=== PATIENT | male | born 1945 | race Caucasian/White ===

== ENCOUNTER → 2018-03-19 | Outpatient (CLI) | payer MEDICARE, BC, OTHER | LOC: M PLARAD 13:38 | DX: M51.26 Other intervertebral disc displacement, lumbar region (principal); M48.061 Spinal stenosis, lumbar region without neurogenic claudication | CPT/HCPCS: 72148 ==

== ENCOUNTER → 2022-10-09 | Outpatient (REF) | LOC: M PLAIMG 10:45 | PROVIDERS: ATTEND Internal Medicine | DX: R06.02 Shortness of breath (principal) ==

== ENCOUNTER → 2022-11-12 | Outpatient (CLI) | payer MEDICARE, BC, OTHER | LOC: M RAD 10:26 | PROVIDERS: ATTEND Surgery Vascular Surgery | DX: I65.23 Occlusion and stenosis of bilateral carotid arteries (principal); I70.203 Unspecified atherosclerosis of native arteries of extremities, bilateral legs; I70.8 Atherosclerosis of other arteries; R09.89 Other specified symptoms and signs involving the circulatory and respiratory systems ==

== ENCOUNTER 2023-01-11 00:56 | Emergency (ER) | payer MEDICARE, BC, OTHER ==
[~2023-01-11] VITALS: Ht 175.3 cm; Wt 80.0 kg
[2023-01-11 00:56] VITALS: BP 155/66; TEMP 97.8; O2SAT 100
[2023-01-11 02:33] LABS: BASO # 0.1 10^3/uL (0.0-0.2); BASO % 1.2 % (0.0-1.0); EOS # 0.6 10^3/uL (0.0-0.5); EOS % 8.2 % (0.0-3.0); HEMATOCRIT 33.2 % (42.0-52.0); HEMOGLOBIN 10.8 g/dl (13.5-17.5); LYMPH # 1.8 10^3/uL (1.5-5.0); LYMPH % 24.8 % (24.0-44.0); MEAN CORPUSCULAR HEMOGLOBIN 29.7 pg (27.0-33.0); MEAN CORPUSCULAR HGB CONC 32.5 g/dl (32.0-36.5); MEAN CORPUSCULAR VOLUME 91.2 fl (80.0-96.0); MONO # 0.6 10^3/uL (0.0-0.8); MONO % 7.5 % (2.0-8.0); NEUTROPHILS # 4.2 10^3/uL (1.5-8.5); NEUTROPHILS % 57.9 % (36.0-66.0); PLATELET COUNT, AUTOMATED 115 10^3/uL (150-450); RED BLOOD COUNT 3.64 10^6/uL (4.30-6.10); WHITE BLOOD COUNT 7.3 10^3/uL (4.0-10.0)
[2023-01-11 02:43] LABS: INR 0.98; PROTHROMBIN TIME 13.2 SECONDS (12.5-14.5)
[2023-01-11 02:44] LABS: CALCIUM LEVEL 8.7 MG/DL (8.3-10.6); CREATININE FOR GFR 2.16 MG/DL (0.70-1.30); GLOMERULAR FILTRATION RATE 31.8 (>42); PARTIAL THROMBOPLASTIN TIME 33.4 SECONDS (24.8-34.2); POTASSIUM SERUM 4.6 MMOL/L (3.5-5.1)
[2023-01-11] MEDS ORDERED: PANT40TA29 PO (17:02)
[2023-01-11] MEDS ORDERED: HYDR-3719 PO (17:02)
[2023-01-11] MEDS ORDERED: GABA-282 PO (17:02)
[2023-01-11] MEDS ORDERED: TAMS1CAP17 PO (17:02)
[2023-01-11] MEDS ORDERED: LEVOTAB10 PO (17:02)
[2023-01-11] MEDS ORDERED: FINA5TAB2 PO (17:02)
[2023-01-11] MEDS ORDERED: ROSU5TAB5 PO (17:02)
[2023-01-11] MEDS ORDERED: LOSA50TA5 PO (17:02)
[2023-01-11] MEDS ORDERED: ECOT81TA5 PO (17:02)
[2023-01-11] MEDS ORDERED: BUPR75TA5 PO (17:02)
[2023-01-11] MEDS ORDERED: ROPI5TAB23 PO (17:02)
[2023-01-11] MEDS ORDERED: FENT100D25 TD (17:02)
[2023-01-11] MEDS ORDERED: FARX1TAB5 PO (17:02)
[2023-01-11] MEDS ORDERED: RA N1TAB PO (17:06)
[2023-01-11] MEDS ORDERED: POTA99TA10 PO (17:06)
[2023-01-11] MEDS ORDERED: [UNRECOGNIZED DRUG - CODE] PO (17:08)
[2023-01-11] MEDS ORDERED: CLOP75TA2 PO (17:13)
== END 2023-01-11 05:48 | disposition left against medical advice (07) ==
LOC: M ED 00:56
DX: Z53.21 Procedure and treatment not carried out due to patient leaving prior to being seen by health care provider (principal)

== ENCOUNTER 2023-01-11 13:18 | Inpatient (IN) | payer MEDICARE, BC, OTHER ==
[~2023-01-11] VITALS: Ht 175.3 cm; Wt 77.7 kg
[2023-01-11 15:46] VITALS: BP 134/63; TEMP 97.3; O2SAT 100
[2023-01-11 15:58] LABS: BASO # 0.1 10^3/uL (0.0-0.2); BASO % 0.8 % (0.0-1.0); EOS # 0.5 10^3/uL (0.0-0.5); LYMPH # 1.3 10^3/uL (1.5-5.0); LYMPH % 17.1 % (24.0-44.0); MEAN CORPUSCULAR HEMOGLOBIN 29.9 pg (27.0-33.0); MEAN CORPUSCULAR HGB CONC 33.3 g/dl (32.0-36.5); MEAN CORPUSCULAR VOLUME 89.7 fl (80.0-96.0); MONO # 0.5 10^3/uL (0.0-0.8); NEUTROPHILS # 4.9 10^3/uL (1.5-8.5); NEUTROPHILS % 67.7 % (36.0-66.0); PLATELET COUNT, AUTOMATED 120 10^3/uL (150-450); RED BLOOD COUNT 3.68 10^6/uL (4.30-6.10); WHITE BLOOD COUNT 7.3 10^3/uL (4.0-10.0)
[2023-01-11] MEDS ORDERED: DEXTROSE 50% 50ML SYRINGE IV PRN (16:15)
[2023-01-11] MEDS ORDERED: MOM 30ML SUSPENSION UDC PO PRN (16:15)
[2023-01-11] MEDS ORDERED: MAALOX 30 ML SUSP *UDC PO PRN (16:15)
[2023-01-11] MEDS ORDERED: GLUCOSE 4GM CHEW TABLET PO PRN (16:15)
[2023-01-11] MEDS ORDERED: GLUCAGON INJ 1MG VIAL SC PRN (16:15)
[2023-01-11] MEDS ORDERED: HEPARIN SOD (PORCINE) 5000UNITS/ML 1ML VIAL/SYRINGE IV PRN (16:20)
[2023-01-11 16:29] LABS: ALBUMIN 4.2 G/DL (3.2-5.2); BILIRUBIN,TOTAL 0.5 MG/DL (0.3-1.2); CALCIUM LEVEL 9.1 MG/DL (8.3-10.6); CREATININE FOR GFR 1.9 MG/DL (0.70-1.30); GLOMERULAR FILTRATION RATE 36.9 (>42); POTASSIUM SERUM 4.4 MMOL/L (3.5-5.1); TOTAL PROTEIN 6.5 G/DL (5.7-8.2)
[2023-01-11] MEDS ORDERED: HEPARIN SOD (PORCINE) 5000UNITS/ML 1ML VIAL/SYRINGE IV ONE (17:00)
[2023-01-11] MEDS ORDERED: HYDR-3719 PO (17:02)
[2023-01-11] MEDS ORDERED: GABA-282 PO (17:02)
[2023-01-11] MEDS ORDERED: FARX1TAB5 PO (17:02)
[2023-01-11] MEDS ORDERED: ECOT81TA5 PO (17:02)
[2023-01-11] MEDS ORDERED: PANT40TA29 PO (17:02)
[2023-01-11] MEDS ORDERED: LEVOTAB10 PO (17:02)
[2023-01-11] MEDS ORDERED: ROSU5TAB5 PO (17:02)
[2023-01-11] MEDS ORDERED: LOSA50TA5 PO (17:02)
[2023-01-11] MEDS ORDERED: ROPI5TAB23 PO (17:02)
[2023-01-11] MEDS ORDERED: TAMS1CAP17 PO (17:02)
[2023-01-11] MEDS ORDERED: FINA5TAB2 PO (17:02)
[2023-01-11] MEDS ORDERED: BUPR75TA5 PO (17:02)
[2023-01-11] MEDS ORDERED: FENT100D25 TD (17:02)
[2023-01-11 17:06] LABS: PROCALCITONIN 0.04 ng/ml
[2023-01-11] MEDS ORDERED: RA N1TAB PO (17:06)
[2023-01-11] MEDS ORDERED: POTA99TA10 PO (17:06)
[2023-01-11] MEDS ORDERED: [UNRECOGNIZED DRUG - CODE] PO (17:08)
[2023-01-11] MEDS ORDERED: HOME MED LIST COMPLETE! XX SCH (17:10)
[2023-01-11] MEDS ORDERED: CLOP75TA2 PO (17:13)
[2023-01-11 17:17] LABS: HEMATOCRIT 31.9 % (42.0-52.0); HEMOGLOBIN 10.3 g/dl (13.5-17.5); MEAN CORPUSCULAR HEMOGLOBIN 29.3 pg (27.0-33.0); MEAN CORPUSCULAR HGB CONC 32.3 g/dl (32.0-36.5); MEAN CORPUSCULAR VOLUME 90.6 fl (80.0-96.0); PLATELET COUNT, AUTOMATED 103 10^3/uL (150-450); RED BLOOD COUNT 3.52 10^6/uL (4.30-6.10); WHITE BLOOD COUNT 6.1 10^3/uL (4.0-10.0)
[2023-01-11] MEDS: INSULIN LISPRO (NovoLOG) PER UNIT SC SCH ×2 (17:30→21:00)
[2023-01-11] MEDS: NS 1,000 ML IV SCH (17:34)
[2023-01-11] MEDS ORDERED: PILL CUTTER 1 EACH XX PRN ×2 (17:35→19:30)
[2023-01-11] MEDS: HEPARIN DRIP 25,000 UNITS in IV 1 EA IV SCH (17:36)
[2023-01-11] MEDS: ASPIRIN 81MG ENTERIC TABLET PO SCH (17:51)
[2023-01-11] MEDS: CLOPIDOGREL 75 MG TAB PO SCH (17:51)
[2023-01-11 20:24] VITALS: BP 162/70; TEMP 98.2; O2SAT 100
[2023-01-11] MEDS: rOPINIRole 1MG TAB PO SCH (21:12)
[2023-01-11] MEDS: TAMSULOSIN 0.4 MG CAP PO SCH (21:12)
[2023-01-11] MEDS: buPROPion 75 MG TAB PO SCH (21:12)
[2023-01-11] MEDS: GABAPENTIN 300 MG CAP PO SCH (21:12)
[2023-01-11] MEDS: DOCUSATE SODIUM 100MG CAPSULE PO SCH (21:12)
[2023-01-11] MEDS: MORPHINE 2 MG/ML 1ML VIAL IV PRN (21:58)
[2023-01-11 23:41] VITALS: BP 132/61; TEMP 98.1; O2SAT 100
[2023-01-12] MEDS ORDERED: UNRESOLVED CLARIFICATION ENTRY XX SCH (00:01)
[2023-01-12 00:40] LABS: INR 1.02; PROTHROMBIN TIME 13.6 SECONDS (12.5-14.5)
[2023-01-12 00:41] LABS: PARTIAL THROMBOPLASTIN TIME 81.2 SECONDS (24.8-34.2)
[2023-01-12 04:06] VITALS: BP 143/66; TEMP 97.8; O2SAT 99
[2023-01-12 06:08] LABS: BASO # 0.1 10^3/uL (0.0-0.2); BASO % 0.9 % (0.0-1.0); EOS # 0.5 10^3/uL (0.0-0.5); EOS % 8.3 % (0.0-3.0); HEMATOCRIT 33.3 % (42.0-52.0); HEMOGLOBIN 10.7 g/dl (13.5-17.5); LYMPH # 1.4 10^3/uL (1.5-5.0); LYMPH % 24.8 % (24.0-44.0); MEAN CORPUSCULAR HEMOGLOBIN 29.2 pg (27.0-33.0); MEAN CORPUSCULAR HGB CONC 32.1 g/dl (32.0-36.5); MONO # 0.4 10^3/uL (0.0-0.8); MONO % 6.6 % (2.0-8.0); NEUTROPHILS # 3.3 10^3/uL (1.5-8.5); NEUTROPHILS % 59.2 % (36.0-66.0); PLATELET COUNT, AUTOMATED 112 10^3/uL (150-450); RED BLOOD COUNT 3.66 10^6/uL (4.30-6.10); WHITE BLOOD COUNT 5.6 10^3/uL (4.0-10.0)
[2023-01-12 06:24] LABS: INR 1.05; PROTHROMBIN TIME 13.9 SECONDS (12.5-14.5)
[2023-01-12 06:26] LABS: PARTIAL THROMBOPLASTIN TIME 63.2 SECONDS (24.8-34.2)
[2023-01-12 06:59] LABS: CALCIUM LEVEL 9.1 MG/DL (8.3-10.6); CREATININE FOR GFR 1.57 MG/DL (0.70-1.30); MAGNESIUM LEVEL 2.2 MG/DL (1.8-2.4); POTASSIUM SERUM 4.2 MMOL/L (3.5-5.1)
[2023-01-12 07:42] VITALS: BP 146/70; TEMP 97.1; O2SAT 99
[2023-01-12] MEDS: NS 1,000 ML IV SCH (08:27)
[2023-01-12] MEDS: PANTOPRAZOLE 40MG TAB (PROTONIX) PO SCH (08:28)
[2023-01-12] MEDS: buPROPion 75 MG TAB PO SCH ×2 (08:28→20:55)
[2023-01-12] MEDS: FINASTERIDE 5MG TAB PO SCH (08:28)
[2023-01-12] MEDS: ROSUVASTATIN 10 MG TAB (CRESTOR) PO SCH (08:28)
[2023-01-12] MEDS: DOCUSATE SODIUM 100MG CAPSULE PO SCH ×2 (08:28→20:55)
[2023-01-12] MEDS: ASPIRIN 81MG ENTERIC TABLET PO SCH (08:28)
[2023-01-12] MEDS: GABAPENTIN 300 MG CAP PO SCH ×2 (08:28→20:55)
[2023-01-12] MEDS: INSULIN LISPRO (NovoLOG) PER UNIT SC SCH ×4 (08:28→20:55)
[2023-01-12] MEDS: CLOPIDOGREL 75 MG TAB PO SCH (08:28)
[2023-01-12 11:31] VITALS: BP 144/63; TEMP 96.4; O2SAT 99
[2023-01-12] MEDS: HEPARIN DRIP 25,000 UNITS in IV 1 EA IV SCH (13:07)
[2023-01-12 13:40] LABS: INR 1.04; PROTHROMBIN TIME 13.8 SECONDS (12.5-14.5)
[2023-01-12 13:41] LABS: PARTIAL THROMBOPLASTIN TIME 63.1 SECONDS (24.8-34.2)
[2023-01-12 16:01] VITALS: BP 155/70; TEMP 97.3; O2SAT 100
[2023-01-12] MEDS: MORPHINE 2 MG/ML 1ML VIAL IV PRN (18:22)
[2023-01-12 19:52] VITALS: BP 134/60; TEMP 97.1; O2SAT 98
[2023-01-12] MEDS ORDERED: predniSONE 50 MG TAB PO SCH (20:00)
[2023-01-12] MEDS: TAMSULOSIN 0.4 MG CAP PO SCH (20:54)
[2023-01-12] MEDS: rOPINIRole 1MG TAB PO SCH (20:54)
[2023-01-12] MEDS: predniSONE 50 MG TAB PO SCH (20:55)
[2023-01-12 23:44] VITALS: BP 162/66; TEMP 96.9; O2SAT 98
[2023-01-13] VITALS (9 sets, daily range): BP systolic 137–180; BP diastolic 62–80; TEMP 96.3–97.8; O2SAT 97–100
[2023-01-13] MEDS: NS 1,000 ML IV SCH ×2 (00:25→19:00)
[2023-01-13] MEDS: predniSONE 50 MG TAB PO SCH ×2 (01:56→07:42)
[2023-01-13 06:46] LABS: BASO % 0.5 % (0.0-1.0); EOS # 0.1 10^3/uL (0.0-0.5); EOS % 1.5 % (0.0-3.0); HEMATOCRIT 34.9 % (42.0-52.0); HEMOGLOBIN 11.1 g/dl (13.5-17.5); LYMPH # 0.5 10^3/uL (1.5-5.0); LYMPH % 11.8 % (24.0-44.0); MEAN CORPUSCULAR HEMOGLOBIN 29.4 pg (27.0-33.0); MEAN CORPUSCULAR HGB CONC 31.8 g/dl (32.0-36.5); MEAN CORPUSCULAR VOLUME 92.3 fl (80.0-96.0); NEUTROPHILS # 3.3 10^3/uL (1.5-8.5); NEUTROPHILS % 84.7 % (36.0-66.0); PLATELET COUNT, AUTOMATED 103 10^3/uL (150-450); RED BLOOD COUNT 3.78 10^6/uL (4.30-6.10); WHITE BLOOD COUNT 3.9 10^3/uL (4.0-10.0)
[2023-01-13] MEDS: INSULIN LISPRO (NovoLOG) PER UNIT SC SCH ×4 (07:30→20:20)
[2023-01-13] MEDS: PANTOPRAZOLE 40MG TAB (PROTONIX) PO SCH (07:42)
[2023-01-13] MEDS: CLOPIDOGREL 75 MG TAB PO SCH (07:42)
[2023-01-13] MEDS: ASPIRIN 81MG ENTERIC TABLET PO SCH (07:43)
[2023-01-13] MEDS: DOCUSATE SODIUM 100MG CAPSULE PO SCH ×2 (07:49→20:18)
[2023-01-13] MEDS ORDERED: diphenhydrAMINE 50MG CAP PO ONE (08:00)
[2023-01-13 08:10] LABS: CALCIUM LEVEL 9.6 MG/DL (8.3-10.6); CREATININE FOR GFR 1.49 MG/DL (0.70-1.30); GLOMERULAR FILTRATION RATE 48.8 (>42); MAGNESIUM LEVEL 1.8 MG/DL (1.8-2.4); POTASSIUM SERUM 5.3 MMOL/L (3.5-5.1)
[2023-01-13] MEDS ORDERED: hydrALAZINE 20MG/ML 1ML VIAL IV STA (08:20)
[2023-01-13] MEDS: buPROPion 75 MG TAB PO SCH ×2 (12:53→20:18)
[2023-01-13] MEDS: GABAPENTIN 300 MG CAP PO SCH ×2 (12:53→20:18)
[2023-01-13] MEDS: FINASTERIDE 5MG TAB PO SCH (12:53)
[2023-01-13] MEDS: ROSUVASTATIN 10 MG TAB (CRESTOR) PO SCH (12:53)
[2023-01-13] MEDS ORDERED: **hydrALAZINE HCL** 25 MG TAB PO PRN (13:20)
[2023-01-13] MEDS: fentaNYL 100 MCG/HR PATCH TD SCH (13:27)
[2023-01-13] MEDS: amLODIPine 5 MG TAB PO SCH (14:37)
[2023-01-13] MEDS ORDERED: PATIROMER SORBITEX CALCIUM 8.4 GM POWDER PACKET (VELTASSA) PO ONE (15:00)
[2023-01-13] MEDS: ACETAMINOPHEN TAB 650MG DOSE (2X325MG) PO PRN (18:55)
[2023-01-13] MEDS: TAMSULOSIN 0.4 MG CAP PO SCH (20:18)
[2023-01-13] MEDS: rOPINIRole 1MG TAB PO SCH (20:18)
[2023-01-13] MEDS: MORPHINE 2 MG/ML 1ML VIAL IV PRN (20:19)
[2023-01-13] MEDS: HEPARIN SOD (PORCINE) 5000UNITS/ML 1ML VIAL/SYRINGE SQ SCH (21:53)
[2023-01-14 00:11] VITALS: BP 163/72; TEMP 96.6; O2SAT 97
[2023-01-14 04:13] VITALS: BP 147/65; TEMP 97.6; O2SAT 100
[2023-01-14 05:58] LABS: BASO % 0.3 % (0.0-1.0); EOS # 0.2 10^3/uL (0.0-0.5); EOS % 1.6 % (0.0-3.0); HEMATOCRIT 33.3 % (42.0-52.0); HEMOGLOBIN 10.5 g/dl (13.5-17.5); LYMPH # 0.6 10^3/uL (1.5-5.0); LYMPH % 5.8 % (24.0-44.0); MEAN CORPUSCULAR HEMOGLOBIN 29.3 pg (27.0-33.0); MEAN CORPUSCULAR HGB CONC 31.5 g/dl (32.0-36.5); MONO # 0.2 10^3/uL (0.0-0.8); MONO % 2.2 % (2.0-8.0); NEUTROPHILS # 8.4 10^3/uL (1.5-8.5); NEUTROPHILS % 89.5 % (36.0-66.0); PLATELET COUNT, AUTOMATED 108 10^3/uL (150-450); RED BLOOD COUNT 3.58 10^6/uL (4.30-6.10); WHITE BLOOD COUNT 9.4 10^3/uL (4.0-10.0)
[2023-01-14 06:15] LABS: CALCIUM LEVEL 9.2 MG/DL (8.3-10.6); CREATININE FOR GFR 1.44 MG/DL (0.70-1.30); GLOMERULAR FILTRATION RATE 50.8 (>42); MAGNESIUM LEVEL 1.9 MG/DL (1.8-2.4); POTASSIUM SERUM 4.2 MMOL/L (3.5-5.1)
[2023-01-14] MEDS: MORPHINE 2 MG/ML 1ML VIAL IV PRN ×2 (06:18→21:26)
[2023-01-14] MEDS: HEPARIN SOD (PORCINE) 5000UNITS/ML 1ML VIAL/SYRINGE SQ SCH ×3 (06:18→21:26)
[2023-01-14] MEDS: INSULIN LISPRO (NovoLOG) PER UNIT SC SCH ×4 (07:30→21:00)
[2023-01-14 08:04] VITALS: BP 148/64; TEMP 97.4; O2SAT 100
[2023-01-14] MEDS: buPROPion 75 MG TAB PO SCH ×2 (09:33→21:34)
[2023-01-14] MEDS: PANTOPRAZOLE 40MG TAB (PROTONIX) PO SCH (09:33)
[2023-01-14] MEDS: GABAPENTIN 300 MG CAP PO SCH ×2 (09:34→21:25)
[2023-01-14] MEDS: DOCUSATE SODIUM 100MG CAPSULE PO SCH ×2 (09:34→21:27)
[2023-01-14] MEDS: FINASTERIDE 5MG TAB PO SCH (09:34)
[2023-01-14] MEDS: ASPIRIN 81MG ENTERIC TABLET PO SCH (09:35)
[2023-01-14] MEDS: ROSUVASTATIN 10 MG TAB (CRESTOR) PO SCH (09:35)
[2023-01-14] MEDS: CLOPIDOGREL 75 MG TAB PO SCH (09:35)
[2023-01-14] MEDS: amLODIPine 5 MG TAB PO SCH (09:35)
[2023-01-14 11:26] VITALS: BP 146/67; TEMP 97.4; O2SAT 100
[2023-01-14 15:52] VITALS: BP 138/62; TEMP 96.9; O2SAT 100
[2023-01-14 16:27] LABS: HEMATOCRIT 32.4 % (42.0-52.0); HEMOGLOBIN 10.5 g/dl (13.5-17.5); MEAN CORPUSCULAR HGB CONC 32.4 g/dl (32.0-36.5); MEAN CORPUSCULAR VOLUME 92.6 fl (80.0-96.0); WHITE BLOOD COUNT 7.7 10^3/uL (4.0-10.0)
[2023-01-14 18:47] LABS: PLATELET COUNT, AUTOMATED 98 10^3/uL (150-450)
[2023-01-14] MEDS: NORCO, ANEXSIA 5/325MG TABLET (HYDROcodone/ACETAMINOPHEN) PO PRN (18:57)
[2023-01-14 20:14] VITALS: BP 148/67; TEMP 97.5; O2SAT 98
[2023-01-14] MEDS: rOPINIRole 1MG TAB PO SCH (21:26)
[2023-01-14] MEDS: TAMSULOSIN 0.4 MG CAP PO SCH (21:26)
[2023-01-15] VITALS (7 sets, daily range): BP systolic 139–157; BP diastolic 63–70; TEMP 97–98.1; O2SAT 99–100
[2023-01-15 05:15] LABS: BASO % 0.5 % (0.0-1.0); EOS # 0.6 10^3/uL (0.0-0.5); HEMATOCRIT 32.3 % (42.0-52.0); HEMOGLOBIN 10.4 g/dl (13.5-17.5); LYMPH # 0.9 10^3/uL (1.5-5.0); LYMPH % 16.3 % (24.0-44.0); MEAN CORPUSCULAR HEMOGLOBIN 29.6 pg (27.0-33.0); MEAN CORPUSCULAR HGB CONC 32.2 g/dl (32.0-36.5); MONO # 0.3 10^3/uL (0.0-0.8); MONO % 4.6 % (2.0-8.0); NEUTROPHILS # 3.7 10^3/uL (1.5-8.5); NEUTROPHILS % 67.2 % (36.0-66.0); RED BLOOD COUNT 3.51 10^6/uL (4.30-6.10); WHITE BLOOD COUNT 5.5 10^3/uL (4.0-10.0)
[2023-01-15 05:24] LABS: CALCIUM LEVEL 9.1 MG/DL (8.3-10.6); CREATININE FOR GFR 1.57 MG/DL (0.70-1.30); MAGNESIUM LEVEL 1.9 MG/DL (1.8-2.4); POTASSIUM SERUM 4.8 MMOL/L (3.5-5.1)
[2023-01-15 05:57] LABS: PLATELET COUNT, AUTOMATED 88 10^3/uL (150-450)
[2023-01-15] MEDS: HEPARIN SOD (PORCINE) 5000UNITS/ML 1ML VIAL/SYRINGE SQ SCH (07:00)
[2023-01-15] MEDS: INSULIN LISPRO (NovoLOG) PER UNIT SC SCH ×4 (07:16→20:49)
[2023-01-15] MEDS: MORPHINE 2 MG/ML 1ML VIAL IV PRN ×4 (07:40→23:14)
[2023-01-15] MEDS: FENTANYL REMOVAL DOCUMENTATION MISC XX SCH (09:55)
[2023-01-15] MEDS: fentaNYL 100 MCG/HR PATCH TD SCH (09:58)
[2023-01-15] MEDS: NORCO, ANEXSIA 5/325MG TABLET (HYDROcodone/ACETAMINOPHEN) PO PRN (10:00)
[2023-01-15] MEDS: FINASTERIDE 5MG TAB PO SCH (10:01)
[2023-01-15] MEDS: ASPIRIN 81MG ENTERIC TABLET PO SCH (10:01)
[2023-01-15] MEDS: DOCUSATE SODIUM 100MG CAPSULE PO SCH ×2 (10:01→20:59)
[2023-01-15] MEDS: buPROPion 75 MG TAB PO SCH ×2 (10:01→20:59)
[2023-01-15] MEDS: ROSUVASTATIN 10 MG TAB (CRESTOR) PO SCH (10:01)
[2023-01-15] MEDS: CLOPIDOGREL 75 MG TAB PO SCH (10:02)
[2023-01-15] MEDS: GABAPENTIN 300 MG CAP PO SCH ×2 (10:02→20:58)
[2023-01-15] MEDS: PANTOPRAZOLE 40MG TAB (PROTONIX) PO SCH (10:02)
[2023-01-15] MEDS: NS 1,000 ML IV SCH (10:04)
[2023-01-15] MEDS: TAMSULOSIN 0.4 MG CAP PO SCH (20:58)
[2023-01-15] MEDS: rOPINIRole 1MG TAB PO SCH (20:58)
[2023-01-16] VITALS (26 sets, daily range): BP systolic 134–167; BP diastolic 47–67; TEMP 96.7–98.3; O2SAT 92–100
[2023-01-16] MEDS ORDERED: NS 1,000 ML IV SCH (01:00)
[2023-01-16 05:34] LABS: BASO % 0.7 % (0.0-1.0); EOS # 0.8 10^3/uL (0.0-0.5); EOS % 17.6 % (0.0-3.0); HEMATOCRIT 31.6 % (42.0-52.0); HEMOGLOBIN 10.3 g/dl (13.5-17.5); LYMPH # 0.8 10^3/uL (1.5-5.0); LYMPH % 17.6 % (24.0-44.0); MEAN CORPUSCULAR HGB CONC 32.6 g/dl (32.0-36.5); MEAN CORPUSCULAR VOLUME 92.1 fl (80.0-96.0); MONO # 0.3 10^3/uL (0.0-0.8); MONO % 6.6 % (2.0-8.0); NEUTROPHILS # 2.5 10^3/uL (1.5-8.5); NEUTROPHILS % 57.3 % (36.0-66.0); RED BLOOD COUNT 3.43 10^6/uL (4.30-6.10); WHITE BLOOD COUNT 4.4 10^3/uL (4.0-10.0)
[2023-01-16 05:36] LABS: PLATELET COUNT, AUTOMATED 93 10^3/uL (150-450)
[2023-01-16 05:58] LABS: CALCIUM LEVEL 8.9 MG/DL (8.3-10.6); CREATININE FOR GFR 1.38 MG/DL (0.70-1.30); GLOMERULAR FILTRATION RATE 53.3 (>42); POTASSIUM SERUM 4.4 MMOL/L (3.5-5.1)
[2023-01-16] MEDS: NS 1,000 ML IV SCH ×2 (06:58→23:25)
[2023-01-16] MEDS: INSULIN LISPRO (NovoLOG) PER UNIT SC SCH ×4 (07:30→22:00)
[2023-01-16] MEDS: ROSUVASTATIN 10 MG TAB (CRESTOR) PO SCH (08:43)
[2023-01-16] MEDS: buPROPion 75 MG TAB PO SCH ×2 (08:43→22:25)
[2023-01-16] MEDS: GABAPENTIN 300 MG CAP PO SCH ×2 (08:44→22:25)
[2023-01-16] MEDS: FINASTERIDE 5MG TAB PO SCH (08:44)
[2023-01-16] MEDS: DOCUSATE SODIUM 100MG CAPSULE PO SCH ×2 (08:44→21:00)
[2023-01-16] MEDS: PANTOPRAZOLE 40MG TAB (PROTONIX) PO SCH (08:44)
[2023-01-16 09:31] LABS: MAGNESIUM LEVEL 1.8 MG/DL (1.8-2.4)
[2023-01-16] MEDS: ASPIRIN 81MG ENTERIC TABLET PO SCH (10:14)
[2023-01-16] MEDS: CLOPIDOGREL 75 MG TAB PO SCH (10:14)
[2023-01-16] MEDS ORDERED: LIDOCAINE 2% 100MG/5ML SDV (FOR ANES.) As Ordered ONE (14:06)
[2023-01-16] MEDS ORDERED: propofoL 200 MG/20 ML VIAL As Ordered ONE (14:06)
[2023-01-16] MEDS ORDERED: ROCURONIUM BROMIDE 50MG/5ML VIAL As Ordered ONE (14:06)
[2023-01-16] MEDS ORDERED: ONDANSETRON 4MG 2ML VIAL As Ordered ONE (14:06)
[2023-01-16] MEDS ORDERED: ISOVUE-300 61% 100ML VIAL As Ordered ONE (14:53)
[2023-01-16] MEDS ORDERED: THROMBIN 5,000 UNITS VIAL As Ordered ONE (14:53)
[2023-01-16] MEDS ORDERED: MIDAZOLAM INJ 2MG/2ML VIAL As Ordered ONE (14:57)
[2023-01-16] MEDS ORDERED: fentaNYL 100 MCG/2 ML INJECTION As Ordered ONE (14:57)
[2023-01-16] MEDS ORDERED: ETOMIDATE INJ 20MG/10ML VIAL As Ordered ONE (14:57)
[2023-01-16] MEDS ORDERED: PHENYLEPHRINE 10MG/ML 1ML VIAL As Ordered ONE (14:59)
[2023-01-16] MEDS ORDERED: ceFAZolin SOD 2 GM in IV 1 EA IV ONE (15:15)
[2023-01-16] MEDS ORDERED: ceFAZolin 2 GM/D5W 50 ML IV BAG As Ordered ONE (15:19)
[2023-01-16] MEDS ORDERED: diphenhydrAMINE 50MG/ML VIAL As Ordered ONE (15:55)
[2023-01-16] MEDS ORDERED: FAMOTIDINE 20MG/2ML VIAL As Ordered ONE (16:23)
[2023-01-16] MEDS ORDERED: methylPREDNISolone 40MG 1ML VIAL As Ordered ONE (16:52)
[2023-01-16] MEDS ORDERED: ePHEDrine SULFATE 25 MG/5 ML(5MG/ML) SYRINGE As Ordered ONE ×2 (16:52→17:18)
[2023-01-16] MEDS ORDERED: HEPARIN SOD (PORCINE) 5000UNITS/ML 1ML VIAL/SYRINGE As Ordered ONE (16:53)
[2023-01-16] MEDS ORDERED: SUGAMMADEX SODIUM 500 MG/5 ML VIAL (BRIDION) As Ordered ONE (16:54)
[2023-01-16] MEDS ORDERED: PROTAMINE SULF 50MG 5ML VIAL As Ordered ONE (18:30)
[2023-01-16] MEDS ORDERED: METOCLOPRAMIDE INJ 10MG/2ML VIAL As Ordered ONE (18:36)
[2023-01-16] MEDS ORDERED: LIDOCAINE 1% SDV 30ML VIAL As Ordered ONE (18:36)
[2023-01-16] MEDS ORDERED: ACETAMINOPHEN 1000MG 100ML IV BAG As Ordered ONE (18:39)
[2023-01-16] MEDS ORDERED: ONDANSETRON 4MG 2ML VIAL IV PRN (18:55)
[2023-01-16] MEDS ORDERED: HYDROMORPHONE HCL 0.5 MG/ 0.5 ML SYRINGE IV PRN (18:55)
[2023-01-16] MEDS ORDERED: oxyCODONE 5MG TAB PO PRN (18:55)
[2023-01-16] MEDS ORDERED: LR 1,000 ML IV SCH (18:55)
[2023-01-16] MEDS ORDERED: fentaNYL 100 MCG/2 ML INJECTION IV PRN (18:55)
[2023-01-16] MEDS: rOPINIRole 1MG TAB PO SCH (22:24)
[2023-01-16] MEDS: TAMSULOSIN 0.4 MG CAP PO SCH (22:25)
[2023-01-17] VITALS (10 sets, daily range): BP systolic 105–158; BP diastolic 55–70; TEMP 97.8–98.4; O2SAT 95–100
[2023-01-17] MEDS ORDERED: ceFAZolin SOD 2 GM in IV 1 EA IV SCH ×2
[2023-01-17] MEDS ORDERED: METOPROLOL TART 25 MG TABLET PO ONE (01:35)
[2023-01-17 05:32] LABS: BASO % 0.2 % (0.0-1.0); EOS % 0.5 % (0.0-3.0); HEMATOCRIT 29.3 % (42.0-52.0); HEMOGLOBIN 9.6 g/dl (13.5-17.5); LYMPH # 0.4 10^3/uL (1.5-5.0); LYMPH % 5.9 % (24.0-44.0); MEAN CORPUSCULAR HEMOGLOBIN 29.6 pg (27.0-33.0); MEAN CORPUSCULAR HGB CONC 32.8 g/dl (32.0-36.5); MEAN CORPUSCULAR VOLUME 90.4 fl (80.0-96.0); MONO # 0.3 10^3/uL (0.0-0.8); MONO % 4.2 % (2.0-8.0); NEUTROPHILS # 5.4 10^3/uL (1.5-8.5); NEUTROPHILS % 88.7 % (36.0-66.0); RED BLOOD COUNT 3.24 10^6/uL (4.30-6.10); WHITE BLOOD COUNT 6.1 10^3/uL (4.0-10.0)
[2023-01-17 05:34] LABS: PLATELET COUNT, AUTOMATED 90 10^3/uL (150-450)
[2023-01-17 05:45] LABS: C REACTIVE PROTEIN QUANTITATIV < 0.40 MG/DL (<1.0)
[2023-01-17 05:47] LABS: BLOOD UREA NITROGEN 27 MG/DL (9-23); CALCIUM LEVEL 8.6 MG/DL (8.3-10.6); CARBON DIOXIDE LEVEL 26 MMOL/L (20-31); CHLORIDE LEVEL 107 MMOL/L (98-107); GLOMERULAR FILTRATION RATE 52.5 (>42); GLUCOSE, FASTING 130 MG/DL (74-106); MAGNESIUM LEVEL 1.8 MG/DL (1.8-2.4); POTASSIUM SERUM 4.9 MMOL/L (3.5-5.1); SODIUM LEVEL 139 MMOL/L (136-145)
[2023-01-17] MEDS: INSULIN LISPRO (NovoLOG) PER UNIT SC SCH ×2 (07:30→12:00)
[2023-01-17] MEDS ORDERED: HEPARIN SOD (PORCINE) 5000UNITS/ML 1ML VIAL/SYRINGE SQ SCH (08:00)
[2023-01-17] MEDS: NS 1,000 ML IV SCH (08:29)
[2023-01-17] MEDS: ASPIRIN 81MG ENTERIC TABLET PO SCH (08:30)
[2023-01-17] MEDS: GABAPENTIN 300 MG CAP PO SCH (08:30)
[2023-01-17] MEDS: FINASTERIDE 5MG TAB PO SCH (08:30)
[2023-01-17] MEDS: ROSUVASTATIN 10 MG TAB (CRESTOR) PO SCH (08:30)
[2023-01-17] MEDS: CLOPIDOGREL 75 MG TAB PO SCH (08:31)
[2023-01-17] MEDS: PANTOPRAZOLE 40MG TAB (PROTONIX) PO SCH (08:31)
[2023-01-17] MEDS: DOCUSATE SODIUM 100MG CAPSULE PO SCH (08:31)
[2023-01-17] MEDS: buPROPion 75 MG TAB PO SCH (08:31)
[2023-01-17] MEDS: ACETAMINOPHEN TAB 650MG DOSE (2X325MG) PO PRN (08:31)
[2023-01-17] MEDS: fentaNYL 100 MCG/HR PATCH TD SCH (08:32)
[2023-01-17] MEDS: FENTANYL REMOVAL DOCUMENTATION MISC XX SCH (08:35)
[2023-01-17] MEDS ORDERED: METOPROLOL TART 12.5 MG PER 1/2 TAB PO SCH (09:00)
[2023-01-17] MEDS ORDERED: HYDR-3719 PO (13:18)
[2023-01-17] MEDS ORDERED: COLA100C5 PO (13:18)
[2023-01-17] MEDS ORDERED: AMLO1TAB25 PO (13:18)
[2023-01-17] MEDS ORDERED: ROSU20TA61 PO (13:19)
[2023-01-17] MEDS ORDERED: LOSA25TA13 PO (13:23)
== END 2023-01-17 15:25 | disposition home or self-care (01) | DRG 272 ==
LOC: M PCU 15:29 → M ICU 01-16 20:47
PROVIDERS: ADMIT General Practice; ATTEND Internal Medicine
PROC: B246ZZZ Ultrasonography of Right and Left Heart (ICD-10-PCS; 2023-01-13)
PROC: 04JY3ZZ Inspection of Lower Artery, Percutaneous Approach (ICD-10-PCS; 2023-01-13)
PROC: 04CK0ZZ Extirpation of Matter from Right Femoral Artery, Open Approach (ICD-10-PCS; 2023-01-16)
PROC: 04UK0KZ Supplement Right Femoral Artery with Nonautologous Tissue Substitute, Open Approach (ICD-10-PCS; 2023-01-16)
PROC: 04CH0ZZ Extirpation of Matter from Right External Iliac Artery, Open Approach (ICD-10-PCS; principal; 2023-01-16 12:50)
DX: E11.51 Type 2 diabetes mellitus with diabetic peripheral angiopathy without gangrene (principal); I25.10 Atherosclerotic heart disease of native coronary artery without angina pectoris; I12.9 Hypertensive chronic kidney disease with stage 1 through stage 4 chronic kidney disease, or unspecified chronic kidney disease; E78.5 Hyperlipidemia, unspecified; N18.30 Chronic kidney disease, stage 3 unspecified; E11.22 Type 2 diabetes mellitus with diabetic chronic kidney disease; N40.0 Benign prostatic hyperplasia without lower urinary tract symptoms; M54.9 Dorsalgia, unspecified; G89.29 Other chronic pain; G25.81 Restless legs syndrome; K21.9 Gastro-esophageal reflux disease without esophagitis; I70.213 Atherosclerosis of native arteries of extremities with intermittent claudication, bilateral legs; E11.621 Type 2 diabetes mellitus with foot ulcer; L97.519 Non-pressure chronic ulcer of other part of right foot with unspecified severity; F39 Unspecified mood [affective] disorder; Z95.1 Presence of aortocoronary bypass graft; Z91.041 Radiographic dye allergy status; Z85.51 Personal history of malignant neoplasm of bladder; Z92.21 Personal history of antineoplastic chemotherapy; Z95.5 Presence of coronary angioplasty implant and graft; Z79.82 Long term (current) use of aspirin; Z79.52 Long term (current) use of systemic steroids; Z79.899 Other long term (current) drug therapy; Z91.040 Latex allergy status

== ENCOUNTER → 2023-02-23 | Outpatient (CLI) | payer MEDICARE, BC, OTHER ==
[~2023-02-23] MED LIST: AMLO1TAB25 PO; BUPR75TA5 PO; CLOP75TA2 PO; COLA100C5 PO; ECOT81TA5 PO; FARX1TAB5 PO; FENT100D25 TD; FINA5TAB2 PO; GABA-282 PO; HYDR-3719 PO; LEVOTAB10 PO; LOSA25TA13 PO; LOSA50TA5 PO; PANT40TA29 PO; POTA99TA10 PO; RA N1TAB PO; ROPI5TAB23 PO; ROSU20TA61 PO; ROSU5TAB5 PO; TAMS1CAP17 PO; [UNRECOGNIZED DRUG - CODE] PO
== END ==
LOC: M RAD 09:51
PROVIDERS: ATTEND Surgery Vascular Surgery
DX: I70.201 Unspecified atherosclerosis of native arteries of extremities, right leg (principal)

== ENCOUNTER → 2023-03-19 | Outpatient (CLI) | payer MEDICARE, BC, OTHER | LOC: M RAD 09:37 | PROVIDERS: ATTEND Surgery Vascular Surgery | DX: I73.9 Peripheral vascular disease, unspecified (principal); Z53.9 Procedure and treatment not carried out, unspecified reason ==

== ENCOUNTER → 2023-03-25 | Outpatient (CLI) | payer MEDICARE, BC, OTHER ==
[~2023-03-25] MED LIST changes: +ISOVUE-370 76% 100ML VIAL As Ordered ONE
== END ==
LOC: M RAD 14:09
PROVIDERS: ATTEND Surgery Vascular Surgery
DX: I70.203 Unspecified atherosclerosis of native arteries of extremities, bilateral legs (principal); K55.1 Chronic vascular disorders of intestine; D35.01 Benign neoplasm of right adrenal gland; K74.60 Unspecified cirrhosis of liver
CPT/HCPCS: 75635; Q9967

== ENCOUNTER 2023-04-27 07:22 | Inpatient (IN) | payer MEDICARE, BC, OTHER ==
[~2023-04-27] VITALS: Ht 175.3 cm; Wt 83.3 kg
[~2023-04-27 07:22] MED LIST changes: -ISOVUE-370 76% 100ML VIAL As Ordered ONE; +ceFAZolin SOD 2 GM in IV 1 EA IV ONE
[2023-04-27] MEDS ORDERED: LR 1,000 ML IV SCH ×2 (07:50→14:40)
[2023-04-27 07:56] LABS: HEMATOCRIT 32.2 % (42.0-52.0); HEMOGLOBIN 10.3 g/dl (13.5-17.5); MEAN CORPUSCULAR HEMOGLOBIN 28.8 pg (27.0-33.0); MEAN CORPUSCULAR VOLUME 89.9 fl (80.0-96.0); PLATELET COUNT, AUTOMATED 108 10^3/uL (150-450); RED BLOOD COUNT 3.58 10^6/uL (4.30-6.10); WHITE BLOOD COUNT 4.6 10^3/uL (4.0-10.0)
[2023-04-27 08:10] LABS: INR 1.04; PARTIAL THROMBOPLASTIN TIME 35.2 SECONDS (24.8-34.2); PROTHROMBIN TIME 13.3 SECONDS (12.5-14.5)
[2023-04-27 08:23] LABS: CALCIUM LEVEL 9.3 MG/DL (8.3-10.6); CREATININE FOR GFR 1.74 MG/DL (0.70-1.30); GLOMERULAR FILTRATION RATE 40.8 (>42); POTASSIUM SERUM 4.4 MMOL/L (3.5-5.1)
[2023-04-27] MEDS ORDERED: THROMBIN 20,000 UNITS KIT As Ordered ONE (08:55)
[2023-04-27] MEDS ORDERED: HEPARIN SOD (PORCINE) 5000UNITS/ML 1ML VIAL/SYRINGE As Ordered ONE ×4 (08:56→12:16)
[2023-04-27] MEDS ORDERED: ISOVUE-300 61% 100ML VIAL As Ordered ONE (08:56)
[2023-04-27] MEDS ORDERED: ONDANSETRON 4MG 2ML VIAL As Ordered ONE (09:19)
[2023-04-27] MEDS ORDERED: propofoL 200 MG/20 ML VIAL As Ordered ONE (09:19)
[2023-04-27] MEDS ORDERED: ROCURONIUM BROMIDE 50MG/5ML VIAL As Ordered ONE (09:19)
[2023-04-27] MEDS ORDERED: fentaNYL 250 MCG/5 ML INJECTION As Ordered ONE (09:21)
[2023-04-27] MEDS ORDERED: MIDAZOLAM INJ 2MG/2ML VIAL As Ordered ONE (09:21)
[2023-04-27] MEDS ORDERED: LIDOCAINE 2% 100MG/5ML SDV (FOR ANES.) As Ordered ONE (09:22)
[2023-04-27] MEDS ORDERED: ETOMIDATE INJ 20MG/10ML VIAL As Ordered ONE (09:55)
[2023-04-27] MEDS ORDERED: LACRILUBE (AKWA TEARS) OPHTH OINT 3.5GM As Ordered ONE (10:46)
[2023-04-27] MEDS ORDERED: ACETAMINOPHEN 1000MG 100ML IV BAG As Ordered ONE (10:46)
[2023-04-27] MEDS ORDERED: SUGAMMADEX SODIUM 500 MG/5 ML VIAL (BRIDION) As Ordered ONE (10:46)
[2023-04-27] MEDS ORDERED: GLYCOPYRROLATE INJ 0.2 MG/ML 2 ML VIAL As Ordered ONE (11:05)
[2023-04-27] MEDS ORDERED: SEVOFLURANE INHAL SOLN 250 ML BTL As Ordered ONE (11:13)
[2023-04-27] MEDS ORDERED: HYDROmorphone HCL 2MG/ML 1ML VIAL As Ordered ONE (11:20)
[2023-04-27] MEDS ORDERED: ePHEDrine SULFATE 25 MG/5 ML(5MG/ML) SYRINGE As Ordered ONE ×2 (11:55→12:39)
[2023-04-27] MEDS ORDERED: PROTAMINE SULF 50MG 5ML VIAL As Ordered ONE (13:33)
[2023-04-27] MEDS ORDERED: LIDOCAINE 1% SDV 30ML VIAL As Ordered ONE (13:34)
[2023-04-27] MEDS ORDERED: ceFAZolin 2 GM/D5W 50 ML IV BAG As Ordered ONE (14:02)
[2023-04-27] MEDS ORDERED: LABETALOL 100MG/20ML VIAL As Ordered ONE (14:23)
[2023-04-27] MEDS ORDERED: dexmedeTOMIDine (4MCG/ML)200MCG/50ML BTL (PRECEDEX) As Ordered ONE (14:39)
[2023-04-27] MEDS ORDERED: ONDANSETRON 4MG 2ML VIAL IV PRN (14:40)
[2023-04-27] MEDS ORDERED: HYDROMORPHONE HCL 0.5 MG/ 0.5 ML SYRINGE IV PRN (14:40)
[2023-04-27] MEDS ORDERED: oxyCODONE 5MG TAB PO PRN (14:40)
[2023-04-27] MEDS ORDERED: fentaNYL 100 MCG/2 ML INJECTION IV PRN (14:40)
[2023-04-27] MEDS ORDERED: hydrALAZINE 20MG/ML 1ML VIAL IV PRN (15:10)
[2023-04-27 15:47] VITALS: BP_SYST 156; BP_SYST 198; BP_DIAS 56; BP_DIAS 90; TEMP 98.9; O2SAT 98
[2023-04-27 16:00] VITALS: BP_SYST 147; BP_SYST 180; BP_DIAS 58; BP_DIAS 94; O2SAT 96
[2023-04-27 17:00] VITALS: BP 158/71; O2SAT 99
[2023-04-27] MEDS: predniSONE 5 MG TAB PO SCH (17:21)
[2023-04-27] MEDS: LOSARTAN 25 MG TAB PO SCH (17:21)
[2023-04-27 18:00] VITALS: BP 163/71; O2SAT 97
[2023-04-27] MEDS: NORCO, ANEXSIA 5/325MG TABLET (HYDROcodone/ACETAMINOPHEN) PO PRN (18:02)
[2023-04-27 20:00] VITALS: BP 143/65; TEMP 98.1; O2SAT 98
[2023-04-27] MEDS ORDERED: ASPIRIN 81MG ENTERIC TABLET PO ONE (20:00)
[2023-04-27] MEDS ORDERED: CLOPIDOGREL 75 MG TAB PO ONE (20:00)
[2023-04-27] MEDS: TAMSULOSIN 0.4 MG CAP PO SCH (20:02)
[2023-04-27] MEDS: GABAPENTIN 300 MG CAP PO SCH (20:02)
[2023-04-27] MEDS: ceFAZolin SOD 1 GM in D5W MINI-BAG PLUS 50 ML IV SCH (21:42)
[2023-04-28] VITALS (8 sets, daily range): BP systolic 138–175; BP diastolic 66–72; TEMP 97.5–98.7; O2SAT 95–100
[2023-04-28] MEDS: NORCO, ANEXSIA 5/325MG TABLET (HYDROcodone/ACETAMINOPHEN) PO PRN ×3 (00:35→17:29)
[2023-04-28 04:26] LABS: BASO % 0.2 % (0.0-1.0); EOS % 0.4 % (0.0-3.0); HEMATOCRIT 28.8 % (42.0-52.0); HEMOGLOBIN 9.2 g/dl (13.5-17.5); LYMPH # 0.6 10^3/uL (1.5-5.0); LYMPH % 7.3 % (24.0-44.0); MEAN CORPUSCULAR HEMOGLOBIN 28.1 pg (27.0-33.0); MEAN CORPUSCULAR HGB CONC 31.9 g/dl (32.0-36.5); MEAN CORPUSCULAR VOLUME 88.1 fl (80.0-96.0); MONO # 0.5 10^3/uL (0.0-0.8); MONO % 5.7 % (2.0-8.0); NEUTROPHILS # 7.3 10^3/uL (1.5-8.5); NEUTROPHILS % 85.9 % (36.0-66.0); PLATELET COUNT, AUTOMATED 103 10^3/uL (150-450); RED BLOOD COUNT 3.27 10^6/uL (4.30-6.10); WHITE BLOOD COUNT 8.5 10^3/uL (4.0-10.0)
[2023-04-28 04:54] LABS: CK-MB VALUE MASS < 1.0 NG/ML (<3.6)
[2023-04-28 04:56] LABS: ALBUMIN 3.4 G/DL (3.2-5.2); ALKALINE PHOSPHATASE 61 U/L (46-116); ALT/SGPT 10 U/L (7.0-40); AST/SGOT 19 U/L (<34); BILIRUBIN,TOTAL 0.3 MG/DL (0.3-1.2); BLOOD UREA NITROGEN 35 MG/DL (9-23); CALCIUM LEVEL 8.5 MG/DL (8.3-10.6); CARBON DIOXIDE LEVEL 27 MMOL/L (20-31); CHLORIDE LEVEL 107 MMOL/L (98-107); CPK CREATINE PHOSPHOKINASE 488 U/L (46-171); CREATININE FOR GFR 1.48 MG/DL (0.70-1.30); GLOMERULAR FILTRATION RATE 49.2 (>42); GLUCOSE, FASTING 103 MG/DL (74-106); POTASSIUM SERUM 4.7 MMOL/L (3.5-5.1); SODIUM LEVEL 140 MMOL/L (136-145); TOTAL PROTEIN 5.6 G/DL (5.7-8.2)
[2023-04-28] MEDS: ceFAZolin SOD 1 GM in D5W MINI-BAG PLUS 50 ML IV SCH ×2 (05:36→14:50)
[2023-04-28] MEDS: GABAPENTIN 300 MG CAP PO SCH ×2 (08:51→20:53)
[2023-04-28] MEDS: PANTOPRAZOLE 40MG TAB (PROTONIX) PO SCH (08:51)
[2023-04-28] MEDS: ASPIRIN 81MG ENTERIC TABLET PO SCH (08:51)
[2023-04-28] MEDS: CLOPIDOGREL 75 MG TAB PO SCH (08:52)
[2023-04-28] MEDS: LOSARTAN 25 MG TAB PO SCH (08:52)
[2023-04-28] MEDS: predniSONE 5 MG TAB PO SCH (08:52)
[2023-04-28] MEDS: **hydrALAZINE HCL** 25 MG TAB PO SCH ×2 (12:00→17:30)
[2023-04-28] MEDS: SENOKOT S TAB PO SCH ×2 (12:08→20:53)
[2023-04-28] MEDS: FINASTERIDE 5MG TAB PO SCH (12:08)
[2023-04-28] MEDS: TAMSULOSIN 0.4 MG CAP PO SCH (20:53)
[2023-04-28] MEDS ORDERED: ROSUVASTATIN 10 MG TAB (CRESTOR) PO SCH (21:00)
[2023-04-28] MEDS ORDERED: rOPINIRole 1MG TAB PO SCH (21:00)
[2023-04-29] MEDS: **hydrALAZINE HCL** 25 MG TAB PO SCH ×2 (00:06→05:59)
[2023-04-29 05:47] VITALS: BP 170/78; TEMP 97.6; O2SAT 96
[2023-04-29] MEDS: NORCO, ANEXSIA 5/325MG TABLET (HYDROcodone/ACETAMINOPHEN) PO PRN (05:59)
[2023-04-29 07:46] LABS: BASO % 0.5 % (0.0-1.0); EOS # 0.3 10^3/uL (0.0-0.5); EOS % 5.1 % (0.0-3.0); HEMATOCRIT 28.3 % (42.0-52.0); HEMOGLOBIN 9.2 g/dl (13.5-17.5); LYMPH # 0.7 10^3/uL (1.5-5.0); LYMPH % 10.9 % (24.0-44.0); MEAN CORPUSCULAR HEMOGLOBIN 28.8 pg (27.0-33.0); MEAN CORPUSCULAR HGB CONC 32.5 g/dl (32.0-36.5); MEAN CORPUSCULAR VOLUME 88.7 fl (80.0-96.0); MONO # 0.4 10^3/uL (0.0-0.8); MONO % 6.1 % (2.0-8.0); NEUTROPHILS # 4.8 10^3/uL (1.5-8.5); NEUTROPHILS % 76.8 % (36.0-66.0); RED BLOOD COUNT 3.19 10^6/uL (4.30-6.10); WHITE BLOOD COUNT 6.3 10^3/uL (4.0-10.0)
[2023-04-29] MEDS: ASPIRIN 81MG ENTERIC TABLET PO SCH (08:03)
[2023-04-29] MEDS: CLOPIDOGREL 75 MG TAB PO SCH (08:03)
[2023-04-29 08:04] VITALS: BP 170/78
[2023-04-29] MEDS: PANTOPRAZOLE 40MG TAB (PROTONIX) PO SCH (08:04)
[2023-04-29] MEDS: GABAPENTIN 300 MG CAP PO SCH (08:04)
[2023-04-29] MEDS: SENOKOT S TAB PO SCH (08:04)
[2023-04-29] MEDS: FINASTERIDE 5MG TAB PO SCH (08:04)
[2023-04-29] MEDS: predniSONE 5 MG TAB PO SCH (08:04)
[2023-04-29 08:11] LABS: PLATELET COUNT, AUTOMATED 84 10^3/uL (150-450)
[2023-04-29 08:13] LABS: CALCIUM LEVEL 9.1 MG/DL (8.3-10.6); CREATININE FOR GFR 1.32 MG/DL (0.70-1.30); GLOMERULAR FILTRATION RATE 56.1 (>42); POTASSIUM SERUM 4.4 MMOL/L (3.5-5.1)
[2023-04-29] MEDS ORDERED: LOSARTAN 25 MG TAB PO SCH (09:00)
[2023-04-29] MEDS ORDERED: SENN-52 PO (10:09)
[2023-04-29] MEDS ORDERED: AMLO1TAB25 PO (10:09)
[2023-04-29] MEDS ORDERED: HYDR-3715 PO (10:09)
== END 2023-04-29 12:25 | disposition home or self-care (01) | DRG 272 ==
LOC: M OR 07:22 → M ICU 15:43 → M MS4PR 04-28 12:43
PROVIDERS: ADMIT Surgery Vascular Surgery; ATTEND Internal Medicine Nephrology
PROC: 04CL0ZZ Extirpation of Matter from Left Femoral Artery, Open Approach (ICD-10-PCS; 2023-04-27)
PROC: 04CJ0ZZ Extirpation of Matter from Left External Iliac Artery, Open Approach (ICD-10-PCS; principal; 2023-04-27 08:30)
DX: E11.51 Type 2 diabetes mellitus with diabetic peripheral angiopathy without gangrene (principal); I70.212 Atherosclerosis of native arteries of extremities with intermittent claudication, left leg; M51.16 Intervertebral disc disorders with radiculopathy, lumbar region; I25.10 Atherosclerotic heart disease of native coronary artery without angina pectoris; I12.9 Hypertensive chronic kidney disease with stage 1 through stage 4 chronic kidney disease, or unspecified chronic kidney disease; C67.9 Malignant neoplasm of bladder, unspecified; J44.9 Chronic obstructive pulmonary disease, unspecified; E11.22 Type 2 diabetes mellitus with diabetic chronic kidney disease; I25.2 Old myocardial infarction; N18.30 Chronic kidney disease, stage 3 unspecified; N40.0 Benign prostatic hyperplasia without lower urinary tract symptoms; K21.9 Gastro-esophageal reflux disease without esophagitis; G25.81 Restless legs syndrome; Z98.41 Cataract extraction status, right eye; Z98.42 Cataract extraction status, left eye; Z91.041 Radiographic dye allergy status; Z91.040 Latex allergy status; Z79.899 Other long term (current) drug therapy; Z79.82 Long term (current) use of aspirin; Z87.891 Personal history of nicotine dependence

== ENCOUNTER 2023-05-09 08:38 | Inpatient (IN) | payer MEDICARE, BC, OTHER ==
[~2023-05-09] VITALS: Ht 175.3 cm; Wt 86.1 kg
[2023-05-09] VITALS (7 sets, daily range): BP systolic 118–163; BP diastolic 58–74; TEMP 98–98.5; O2SAT 93–100
[~2023-05-09 08:38] MED LIST changes: +HYDR-3715 PO; +SENN-52 PO; -ceFAZolin SOD 2 GM in IV 1 EA IV ONE
[2023-05-09 10:02] LABS: BASO # 0.1 10^3/uL (0.0-0.2); BASO % 0.7 % (0.0-1.0); EOS # 0.4 10^3/uL (0.0-0.5); EOS % 4.7 % (0.0-3.0); HEMATOCRIT 27.7 % (42.0-52.0); HEMOGLOBIN 8.8 g/dl (13.5-17.5); LYMPH # 0.7 10^3/uL (1.5-5.0); LYMPH % 8.7 % (24.0-44.0); MEAN CORPUSCULAR HEMOGLOBIN 28.8 pg (27.0-33.0); MEAN CORPUSCULAR HGB CONC 31.8 g/dl (32.0-36.5); MEAN CORPUSCULAR VOLUME 90.5 fl (80.0-96.0); MONO # 0.4 10^3/uL (0.0-0.8); MONO % 4.3 % (2.0-8.0); NEUTROPHILS # 6.6 10^3/uL (1.5-8.5); NEUTROPHILS % 81.2 % (36.0-66.0); PLATELET COUNT, AUTOMATED 125 10^3/uL (150-450); RED BLOOD COUNT 3.06 10^6/uL (4.30-6.10); WHITE BLOOD COUNT 8.1 10^3/uL (4.0-10.0)
[2023-05-09 10:17] LABS: INR 1.03; PROTHROMBIN TIME 13.2 SECONDS (12.5-14.5)
[2023-05-09 10:31] LABS: CALCIUM LEVEL 8.7 MG/DL (8.3-10.6); CREATININE FOR GFR 1.66 MG/DL (0.70-1.30); GLOMERULAR FILTRATION RATE 43.1 (>42); POTASSIUM SERUM 4.4 MMOL/L (3.5-5.1)
[2023-05-09] MEDS ORDERED: MED REC IN PROGRESS XX SCH (10:35)
[2023-05-09] MEDS ORDERED: ROSU20TA61 PO (11:14)
[2023-05-09] MEDS ORDERED: TIZA2TA PO (11:14)
[2023-05-09] MEDS ORDERED: DOXY200C PO (11:14)
[2023-05-09] MEDS ORDERED: HYDR-4571 PO (11:14)
[2023-05-09] MEDS ORDERED: LOSA50TA5 PO (11:14)
[2023-05-09] MEDS ORDERED: NS 1,000 ML IV SCH (11:15)
[2023-05-09 11:19] LABS: RSV AMPLIFICATION NEGATIVE (NEGATIVE)
[2023-05-09] MEDS ORDERED: HOME MED LIST COMPLETE! XX SCH (11:20)
[2023-05-09] MEDS ORDERED: ceFAZolin SOD 2 GM in IV 1 EA IV ONE (11:30)
[2023-05-09] MEDS ORDERED: THROMBIN 5,000 UNITS VIAL As Ordered ONE (11:54)
[2023-05-09] MEDS ORDERED: ISOVUE-300 61% 100ML VIAL As Ordered ONE (11:55)
[2023-05-09] MEDS ORDERED: HEPARIN SOD (PORCINE) 5000UNITS/ML 1ML VIAL/SYRINGE As Ordered ONE (11:55)
[2023-05-09] MEDS ORDERED: MORPHINE 2 MG/ML 1ML VIAL IV ONE (12:25)
[2023-05-09] MEDS ORDERED: ONDANSETRON 4MG 2ML VIAL IV ONE (12:25)
[2023-05-09] MEDS ORDERED: LIDOCAINE 2% 100MG/5ML SDV (FOR ANES.) As Ordered ONE (13:56)
[2023-05-09] MEDS ORDERED: ACETAMINOPHEN 1000MG 100ML IV BAG As Ordered ONE (13:56)
[2023-05-09] MEDS ORDERED: MIDAZOLAM INJ 2MG/2ML VIAL As Ordered ONE (13:56)
[2023-05-09] MEDS ORDERED: propofoL 200 MG/20 ML VIAL As Ordered ONE (13:56)
[2023-05-09] MEDS ORDERED: ePHEDrine SULFATE 25 MG/5 ML(5MG/ML) SYRINGE As Ordered ONE (13:56)
[2023-05-09] MEDS ORDERED: ONDANSETRON 4MG 2ML VIAL As Ordered ONE (13:56)
[2023-05-09] MEDS ORDERED: SUGAMMADEX SODIUM 500 MG/5 ML VIAL (BRIDION) As Ordered ONE (13:56)
[2023-05-09] MEDS ORDERED: fentaNYL 250 MCG/5 ML INJECTION As Ordered ONE (13:56)
[2023-05-09] MEDS ORDERED: ROCURONIUM BROMIDE 50MG/5ML VIAL As Ordered ONE (13:56)
[2023-05-09] MEDS ORDERED: LIDOCAINE 1% SDV 30ML VIAL As Ordered ONE (14:21)
[2023-05-09] MEDS: hydrALAZINE 20MG/ML 1ML VIAL IV PRN (15:21)
[2023-05-09 15:39] LABS: HEMOGLOBIN 9.4 g/dl (13.5-17.5); MEAN CORPUSCULAR HEMOGLOBIN 28.6 pg (27.0-33.0); MEAN CORPUSCULAR HGB CONC 32.4 g/dl (32.0-36.5); MEAN CORPUSCULAR VOLUME 88.1 fl (80.0-96.0); PLATELET COUNT, AUTOMATED 120 10^3/uL (150-450); RED BLOOD COUNT 3.29 10^6/uL (4.30-6.10); WHITE BLOOD COUNT 8.1 10^3/uL (4.0-10.0)
[2023-05-09 16:10] LABS: CREATININE FOR GFR 1.41 MG/DL (0.70-1.30); MAGNESIUM LEVEL 1.9 MG/DL (1.8-2.4); POTASSIUM SERUM 4.8 MMOL/L (3.5-5.1)
[2023-05-09] MEDS ORDERED: CEFTAROLINE FOSAMIL 300 MG in D5W 50 ML IV SCH (18:00)
[2023-05-09] MEDS: ROSUVASTATIN 10 MG TAB (CRESTOR) PO SCH (18:24)
[2023-05-09] MEDS: FINASTERIDE 5MG TAB PO SCH (18:24)
[2023-05-09] MEDS: NORCO, ANEXSIA 5/325MG TABLET (HYDROcodone/ACETAMINOPHEN) PO PRN (18:26)
[2023-05-09] MEDS: GABAPENTIN 300 MG CAP PO SCH (20:18)
[2023-05-09] MEDS: rOPINIRole 1MG TAB PO SCH (20:18)
[2023-05-09] MEDS: TAMSULOSIN 0.4 MG CAP PO SCH (20:18)
[2023-05-09] MEDS: buPROPion 75 MG TAB PO SCH (20:35)
[2023-05-09] MEDS: CEFTAROLINE FOSAMIL 300 MG in D5W 50 ML IV SCH (20:35)
[2023-05-10] VITALS (13 sets, daily range): BP systolic 118–171; BP diastolic 58–87; TEMP 97.3–98.4; O2SAT 96–99
[2023-05-10] MEDS: NORCO, ANEXSIA 5/325MG TABLET (HYDROcodone/ACETAMINOPHEN) PO PRN ×3 (00:29→20:11)
[2023-05-10 05:29] LABS: BASO % 0.5 % (0.0-1.0); EOS # 0.2 10^3/uL (0.0-0.5); EOS % 2.5 % (0.0-3.0); HEMATOCRIT 27.8 % (42.0-52.0); LYMPH # 0.9 10^3/uL (1.5-5.0); LYMPH % 10.5 % (24.0-44.0); MEAN CORPUSCULAR HEMOGLOBIN 28.6 pg (27.0-33.0); MEAN CORPUSCULAR HGB CONC 32.4 g/dl (32.0-36.5); MEAN CORPUSCULAR VOLUME 88.3 fl (80.0-96.0); MONO # 0.4 10^3/uL (0.0-0.8); MONO % 4.9 % (2.0-8.0); NEUTROPHILS # 6.8 10^3/uL (1.5-8.5); NEUTROPHILS % 81.1 % (36.0-66.0); PLATELET COUNT, AUTOMATED 111 10^3/uL (150-450); RED BLOOD COUNT 3.15 10^6/uL (4.30-6.10); WHITE BLOOD COUNT 8.4 10^3/uL (4.0-10.0)
[2023-05-10 06:02] LABS: CALCIUM LEVEL 8.2 MG/DL (8.3-10.6); CREATININE FOR GFR 1.49 MG/DL (0.70-1.30); FOLATE 14.47 NG/ML (>5.4); GLOMERULAR FILTRATION RATE 48.8 (>42); POTASSIUM SERUM 4.3 MMOL/L (3.5-5.1)
[2023-05-10] MEDS: PANTOPRAZOLE 40MG TAB (PROTONIX) PO SCH (07:36)
[2023-05-10] MEDS: DAPAGLIFLOZIN PROPANEDIOL 10MG TABLET (FARXIGA) PO SCH (08:06)
[2023-05-10] MEDS: FINASTERIDE 5MG TAB PO SCH (08:07)
[2023-05-10] MEDS: LOSARTAN 50MG TABLET PO SCH (08:07)
[2023-05-10] MEDS: buPROPion 75 MG TAB PO SCH ×2 (08:07→20:12)
[2023-05-10] MEDS: ROSUVASTATIN 10 MG TAB (CRESTOR) PO SCH (08:07)
[2023-05-10] MEDS: hydroCHLOROthiazide 12.5 MG CAPSULE PO SCH (08:07)
[2023-05-10] MEDS: GABAPENTIN 300 MG CAP PO SCH ×2 (08:07→20:10)
[2023-05-10] MEDS: CEFTAROLINE FOSAMIL 300 MG in D5W 50 ML IV SCH ×2 (08:08→20:12)
[2023-05-10] MEDS: HEPARIN SOD (PORCINE) 5000UNITS/ML 1ML VIAL/SYRINGE SQ SCH (20:10)
[2023-05-10] MEDS: rOPINIRole 1MG TAB PO SCH (20:11)
[2023-05-10] MEDS: TAMSULOSIN 0.4 MG CAP PO SCH (20:11)
[2023-05-10] MEDS: hydrALAZINE 20MG/ML 1ML VIAL IV PRN (20:50)
[2023-05-10] MEDS ORDERED: hydrALAZINE 20MG/ML 1ML VIAL IV STA (21:33)
[2023-05-10] MEDS ORDERED: MORPHINE 4 MG/ML 1ML VIAL IV ONE (21:35)
[2023-05-11] VITALS (11 sets, daily range): BP systolic 132–156; BP diastolic 65–70; TEMP 97.4–97.9; O2SAT 98
[2023-05-11] MEDS: hydrALAZINE 20MG/ML 1ML VIAL IV PRN (03:29)
[2023-05-11 04:36] LABS: BASO % 0.6 % (0.0-1.0); EOS # 0.6 10^3/uL (0.0-0.5); EOS % 8.3 % (0.0-3.0); HEMATOCRIT 29.6 % (42.0-52.0); HEMOGLOBIN 9.3 g/dl (13.5-17.5); LYMPH # 0.8 10^3/uL (1.5-5.0); LYMPH % 10.6 % (24.0-44.0); MEAN CORPUSCULAR HEMOGLOBIN 27.5 pg (27.0-33.0); MEAN CORPUSCULAR HGB CONC 31.4 g/dl (32.0-36.5); MEAN CORPUSCULAR VOLUME 87.6 fl (80.0-96.0); MONO # 0.3 10^3/uL (0.0-0.8); MONO % 4.6 % (2.0-8.0); NEUTROPHILS # 5.4 10^3/uL (1.5-8.5); NEUTROPHILS % 75.2 % (36.0-66.0); PLATELET COUNT, AUTOMATED 104 10^3/uL (150-450); RED BLOOD COUNT 3.38 10^6/uL (4.30-6.10); WHITE BLOOD COUNT 7.2 10^3/uL (4.0-10.0)
[2023-05-11] MEDS ORDERED: hydrALAZINE 20MG/ML 1ML VIAL IV ONE (04:40)
[2023-05-11 04:57] LABS: CALCIUM LEVEL 8.8 MG/DL (8.3-10.6); CREATININE FOR GFR 1.51 MG/DL (0.70-1.30); GLOMERULAR FILTRATION RATE 48.1 (>42); POTASSIUM SERUM 4.8 MMOL/L (3.5-5.1)
[2023-05-11] MEDS ORDERED: ONDANSETRON 4MG 2ML VIAL IV ONE (05:00)
[2023-05-11] MEDS: hydroCHLOROthiazide 12.5 MG CAPSULE PO SCH (08:46)
[2023-05-11] MEDS: GABAPENTIN 300 MG CAP PO SCH (08:46)
[2023-05-11] MEDS: buPROPion 75 MG TAB PO SCH (08:46)
[2023-05-11] MEDS: ROSUVASTATIN 10 MG TAB (CRESTOR) PO SCH (08:47)
[2023-05-11] MEDS: FINASTERIDE 5MG TAB PO SCH (08:47)
[2023-05-11] MEDS: CEFTAROLINE FOSAMIL 300 MG in D5W 50 ML IV SCH (08:47)
[2023-05-11] MEDS: DAPAGLIFLOZIN PROPANEDIOL 10MG TABLET (FARXIGA) PO SCH (08:47)
[2023-05-11] MEDS: LOSARTAN 50MG TABLET PO SCH (08:47)
[2023-05-11] MEDS: PANTOPRAZOLE 40MG TAB (PROTONIX) PO SCH (08:47)
[2023-05-11] MEDS: HEPARIN SOD (PORCINE) 5000UNITS/ML 1ML VIAL/SYRINGE SQ SCH (08:48)
[2023-05-11] MEDS: NORCO, ANEXSIA 5/325MG TABLET (HYDROcodone/ACETAMINOPHEN) PO PRN (08:56)
[2023-05-11] MEDS ORDERED: PANTOPRAZOLE 40MG TAB (PROTONIX) PO SCH (09:00)
[2023-05-11] MEDS ORDERED: amLODIPine 5 MG TAB PO SCH (09:00)
[2023-05-11] MEDS ORDERED: AMLO1TAB24 PO (10:43)
== END 2023-05-11 12:45 | disposition home or self-care (01) | DRG 253 ==
LOC: M ED 08:38 → M SDC 11:09 → ENRESERV 12:11 → M ICU 16:38
PROVIDERS: ADMIT Internal Medicine Nephrology; ATTEND Surgery Vascular Surgery
PROC: 30233N1 Transfusion of Nonautologous Red Blood Cells into Peripheral Vein, Percutaneous Approach (ICD-10-PCS; 2023-05-09)
PROC: 04QL0ZZ Repair Left Femoral Artery, Open Approach (ICD-10-PCS; principal; 2023-05-09 11:23)
DX: T81.718A Complication of other artery following a procedure, not elsewhere classified, initial encounter (principal); I13.0 Hypertensive heart and chronic kidney disease with heart failure and stage 1 through stage 4 chronic kidney disease, or unspecified chronic kidney disease; D62 Acute posthemorrhagic anemia; I25.10 Atherosclerotic heart disease of native coronary artery without angina pectoris; I48.91 Unspecified atrial fibrillation; E11.42 Type 2 diabetes mellitus with diabetic polyneuropathy; E11.22 Type 2 diabetes mellitus with diabetic chronic kidney disease; I50.9 Heart failure, unspecified; N18.30 Chronic kidney disease, stage 3 unspecified; K74.60 Unspecified cirrhosis of liver; D69.6 Thrombocytopenia, unspecified; N40.0 Benign prostatic hyperplasia without lower urinary tract symptoms; M54.50 Low back pain, unspecified; G89.29 Other chronic pain; L71.9 Rosacea, unspecified; G25.81 Restless legs syndrome; K21.9 Gastro-esophageal reflux disease without esophagitis; F32.A Depression, unspecified; E11.51 Type 2 diabetes mellitus with diabetic peripheral angiopathy without gangrene; I72.4 Aneurysm of artery of lower extremity; Z57.4 Occupational exposure to toxic agents in agriculture; I70.218 Atherosclerosis of native arteries of extremities with intermittent claudication, other extremity; Z98.41 Cataract extraction status, right eye; Z98.42 Cataract extraction status, left eye; Z87.891 Personal history of nicotine dependence; Z79.82 Long term (current) use of aspirin; Z79.01 Long term (current) use of anticoagulants; Z79.2 Long term (current) use of antibiotics; Z79.899 Other long term (current) drug therapy; Z95.5 Presence of coronary angioplasty implant and graft; Z91.040 Latex allergy status; Z91.041 Radiographic dye allergy status; Z85.51 Personal history of malignant neoplasm of bladder; Z20.822 Contact with and (suspected) exposure to COVID-19

== ENCOUNTER → 2023-05-18 | Outpatient (CLI) | payer MEDICARE, BC, OTHER ==
[~2023-05-18] MED LIST changes: +AMLO1TAB24 PO; +DOXY200C PO; +HYDR-4571 PO; +TIZA2TA PO
== END ==
LOC: M RAD 13:15
PROVIDERS: ATTEND Surgery Vascular Surgery
DX: I70.203 Unspecified atherosclerosis of native arteries of extremities, bilateral legs (principal); I74.5 Embolism and thrombosis of iliac artery

== ENCOUNTER 2023-06-01 14:20 | Emergency (ER) | payer MEDICARE, BC, OTHER ==
[~2023-06-01] VITALS: Ht 175.3 cm; Wt 86.3 kg
[2023-06-01 17:51] VITALS: BP 178/78; TEMP 97.8; O2SAT 100
[2023-06-01 17:52] LABS: BASO # 0.1 10^3/uL (0.0-0.2); EOS # 0.6 10^3/uL (0.0-0.5); EOS % 9.7 % (0.0-3.0); HEMATOCRIT 31.4 % (42.0-52.0); HEMOGLOBIN 10.1 g/dl (13.5-17.5); LYMPH # 1.3 10^3/uL (1.5-5.0); LYMPH % 21.4 % (24.0-44.0); MEAN CORPUSCULAR HEMOGLOBIN 28.5 pg (27.0-33.0); MEAN CORPUSCULAR HGB CONC 32.2 g/dl (32.0-36.5); MEAN CORPUSCULAR VOLUME 88.5 fl (80.0-96.0); MONO # 0.4 10^3/uL (0.0-0.8); MONO % 6.9 % (2.0-8.0); NEUTROPHILS # 3.8 10^3/uL (1.5-8.5); NEUTROPHILS % 60.7 % (36.0-66.0); PLATELET COUNT, AUTOMATED 108 10^3/uL (150-450); RED BLOOD COUNT 3.55 10^6/uL (4.30-6.10); WHITE BLOOD COUNT 6.3 10^3/uL (4.0-10.0)
[2023-06-01 17:58] LABS: ERYTHROCYTE SEDIMENTATION RATE 3 mm/hr (0-20)
[2023-06-01 18:04] LABS: C REACTIVE PROTEIN QUANTITATIV < 0.40 MG/DL (<1.0); LIPASE 45 U/L (12-53)
[2023-06-01 18:06] LABS: ALBUMIN 3.8 G/DL (3.2-5.2); ALKALINE PHOSPHATASE 63 U/L (46-116); ALT/SGPT 12 U/L (7.0-40); AST/SGOT 30 U/L (<34); BILIRUBIN,DIRECT < 0.1 MG/DL (<0.4); BILIRUBIN,TOTAL 0.4 MG/DL (0.3-1.2); BLOOD UREA NITROGEN 32 MG/DL (9-23); CALCIUM LEVEL 8.9 MG/DL (8.3-10.6); CARBON DIOXIDE LEVEL 24 MMOL/L (20-31); CHLORIDE LEVEL 107 MMOL/L (98-107); CREATININE FOR GFR 1.47 MG/DL (0.70-1.30); GLOMERULAR FILTRATION RATE 49.6 (>42); GLUCOSE, FASTING 90 MG/DL (74-106); SODIUM LEVEL 139 MMOL/L (136-145); TOTAL PROTEIN 6.2 G/DL (5.7-8.2)
[2023-06-01 18:26] LABS: RSV AMPLIFICATION NEGATIVE (NEGATIVE)
[2023-06-01] MEDS ORDERED: CEPH500C PO (18:55)
== END 2023-06-01 19:07 | disposition left against medical advice (07) ==
LOC: M ED 14:20
DX: R22.42 Localized swelling, mass and lump, left lower limb (principal); I10 Essential (primary) hypertension; E11.9 Type 2 diabetes mellitus without complications; N18.9 Chronic kidney disease, unspecified; C67.9 Malignant neoplasm of bladder, unspecified; Z87.891 Personal history of nicotine dependence; Z79.899 Other long term (current) drug therapy; Z79.891 Long term (current) use of opiate analgesic; Z79.82 Long term (current) use of aspirin; Z53.9 Procedure and treatment not carried out, unspecified reason